=== PATIENT | male | born 1945 | race Caucasian/White ===

== ENCOUNTER 2017-07-21 10:19 | Emergency (ER) | payer MEDICARE ==
--- NOTE | 2017-07-21 11:38 | EDM.PDOC ---
ED HPI GENERAL MEDICAL PROBLEM - General Chief Complaint: ENT Problem Stated Complaint: SOMETHING STUCK IN THROAT Time Seen by Provider: 07/21/17 11:10 Source of Information: Reports: Patient, Family History Limitations: Reports: No Limitations - History of Present Illness INITIAL COMMENTS - FREE TEXT/NARRATIVE: 72 yo male presents to ER with daughter. pt has complaint of 9 month hx of dry mouth and fatigue with SOB associated with physical activity. Pt has recently seen his felling bucking supervisor whom is managing his heart failure and pace maker. Pt reports his felling bucking supervisor is aware of fatigue and SOB. patient's daughter is stating that pt has a "device" in his throat. Daughter states "he was bugged with a venereal disease/device placed in his adenoid during his colonoscopy" She also repeatedly requested imaging of throat and chest to "see the device" pt denies difficulty swallowing, denies sore throat or stiff neck, denies a device present in his body. Pt is unaware of his medication list and states that his daughter knows list of medications. When asked his daughter refuses to tell me what his medications are stating "that would be a HIPA violation" Pt was asked if he felt safe with his daughter and he stated yes. - Related Data Allergies Allergy/AdvReac Type Severity Reaction Status Date / Time No Known Allergies Allergy Verified 07/21/17 10:56 Home Meds: Home Meds . [Unable to Verify Home Med List] 07/21/17 [History] Past Medical History Cardiovascular History: Reports: Pacemaker Social & Family History - Tobacco Use Smoking Status *Q: Never Smoker ED ROS ENT - Review of Systems Review Of Systems: See Below Constitutional: Denies: Fever, Chills, Malaise, Fatigue HEENT: Denies: Rhinitis, Sinus Problem, Throat Pain, Throat Swelling, Vertigo Respiratory: Denies: Shortness of Breath, Wheezing, Cough Cardiovascular: Denies: Chest Pain Psychiatric: Denies: Anxiety, Confusion ED EXAM, ENT - Physical Exam Exam: See Below Exam Limited By: No Limitations General Appearance: Alert, WD/WN, No Apparent Distress Nose: Normal Inspection, Normal Mucousa Mouth/Throat: Normal Oropharynx, Dry Mucous Membrane. No: Gum Swelling, Hoarse Voice, Lip Swelling, Muffled Voice, Oral Ulcers, Peritonsillar Mass, Pharyngeal Erythema, Throat Swelling, Tongue Swelling Head: Atraumatic, Normocephalic Neck: Normal Inspection, Supple, Non-Tender, Full Range of Motion. No: Lymphadenopathy (R), Lymphadenopathy (L) Respiratory/Chest: No Respiratory Distress, Lungs Clear, Normal Breath Sounds. No: Crackles, Rhonchi, Wheezing Cardiovascular: No Edema, Bradycardia, Systolic Murmur. No: Friction Rub GI/Abdominal: Soft, Non-Tender Neurological: Alert, Oriented, Normal Cognition Psychiatric: Normal Affect, Normal Mood Skin: Warm, Dry, Intact Course - Vital Signs Last Recorded V/S: Last Vital Signs Temp 36.6 C 07/21/17 11:04 Pulse 56 L 07/21/17 11:04 Resp 14 07/21/17 11:04 BP 120/74 07/21/17 11:04 Pulse Ox 98 07/21/17 11:04 - Re-Assessments/Exams Free Text/Narrative Re-Assessment/Exam: 07/21/17 11:54 pt does not believe he has a device in his body. I do not find evidence of a foreign body in throat or chest. Extensive time was spent with daughter discussing the fact that I saw no need for him to have any imaging studies. She did refuse to leave the lobby to discuss his case in private, so the discussion did take place in the ER lobby. I did encourage daughter to follow- up with his felling bucking supervisor for evaluation of low pulse rate setting of pace maker. pt was asked if he felt safe with daughter and he states that yes he does. Departure - Departure Time of Disposition: 11:34 Disposition: Home, Self-Care 01 Condition: Good Clinical Impression: Dry mouth - Discharge Information Instructions: Sodium Fluoride dental paste Referrals: Loc Pandya MD [Primary Care Provider] - Forms: ED Department Discharge Additional Instructions: I see no evidence of a device in your throat. I do not feel any abnormal lymph nodes that would indicate swelling or a device located in your lymph system. Your dry mouth is a side effect of multiple medications that you are on, you can help manage this side effect by sucking on sugar free candy, sucking on ice , or using over the county dry mouth medications your pace maker is set very low, this is why you are having fatigue with activity. please follow-up with felling bucking supervisor
== END 2017-07-21 11:55 | disposition home or self-care (01) ==
LOC: JP.ED 10:19
DX: R68.2 Dry mouth, unspecified (principal); I50.9 Heart failure, unspecified; Z95.0 Presence of cardiac pacemaker
CPT/HCPCS: 99283